=== PATIENT | male | born 1970 | race Caucasian/White ===

== ENCOUNTER 2018-10-27 11:16 | Emergency (ER) | payer OTHER ==
[~2018-10-27] VITALS: Ht 175.3 cm; Wt 90.7 kg
[~2018-10-27 11:16] MED LIST: MOBIC7.5 M1 PO; NORCO 5-325 TA1 EACH PO; PROVENTIL HFA6.7 G1 INH
[2018-10-27 13:25] LABS: ABSOLUTE BASOPHILS 0.1 thou/uL (0.0-0.2); ABSOLUTE EOSINOPHILS 0.5 thou/uL (0.0-0.7); ABSOLUTE LYMPHOCYTES 2.1 thou/uL (0.8-5.3); ABSOLUTE MONOCYTES 1.1 thou/uL (0.0-1.2); ABSOLUTE NEUTROPHILS 7.4 thou/uL (1.6-8.1); BASOPHILS 1.1 %; EOSINOPHILS 4.5 %; HEMATOCRIT 50.8 % (42.0-52.0); HEMOGLOBIN 17.3 gm/dL (14.0-18.0); LYMPHOCYTES 18.8 %; MCH 30.6 pg (26.0-34.0); MCHC 34.1 g/dL (28.0-37.0); MCV 89.8 fL (80.0-100.0); MONOCYTES 10.1 %; MPV 7.2 fl. (7.2-11.1); NUCLEATED RBCS 0 /100WBC; PLATELET COUNT* 303 thou/uL (150-400); POLYS 65.5 %; RBC 5.66 mil/uL (4.50-6.00); RDW-CV 12.8 % (10.5-14.5); WBC 11.4 thou/uL (4.0-11.0)
[2018-10-27 13:33] LABS: CREATININE 0.8 mg/dL (0.6-1.3)
[2018-10-27 13:35] LABS: APTT 30.4 Seconds (25.0-31.3); PROTIME 10.3 Seconds (9.20-11.50)
[2018-10-27 13:38] LABS: ALBUMIN 3.3 g/dL (3.4-5.0); TOTAL BILIRUBIN 0.9 mg/dL (<0.1-1.0); TOTAL PROTEIN 8.1 g/dL (6.4-8.2)
[2018-10-27] MEDS ORDERED: IBUPROFEN 800800 M1 PO (16:12)
[2018-10-27] MEDS ORDERED: ULTRAM 50MG TAB50 MG PO (16:12)
[2018-10-27 16:30] LABS: URINE BLOOD TRACE (Negative); URINE CLARITY CLEAR; URINE COLOR YELLOW; URINE GLUCOSE-RANDOM NEGATIVE (Negative); URINE KETONES TRACE (Negative); URINE LEUKOCYTES-REFLEX NEGATIVE (Negative); URINE NITRITE-REFLEX NEGATIVE (Negative); URINE PROTEIN TRACE (Negative); URINE SPECIFIC GRAVITY >= 1.030 (1.005-1.030); URINE UROBILINOGEN 0.2 E.U./dl (0.2-1.0)
[2018-10-27 16:33] VITALS: BP 95/56
[2018-10-27 16:39] LABS: ICTOTEST (BILI CONFIRMATORY) Negative (Negative); URINE BILIRUBIN 1+ (Negative)
[2018-10-27 16:47] LABS: AMP/METHAMP POSITIVE (Negative); BARBITURATES Negative (Negative); BENZODIAZEPINES Negative (Negative); COCAINE Negative (Negative); METHADONE Negative (Negative); OPIATES POSITIVE (Negative); PCP Negative (Negative); THC Negative (Negative)
== END 2018-10-27 16:34 | disposition home or self-care (01) ==
LOC: M.ERS 11:16
PROVIDERS: Personal Emergency Response Attendant
DX: R51 Headache (principal); F17.210 Nicotine dependence, cigarettes, uncomplicated; J45.909 Unspecified asthma, uncomplicated